=== PATIENT | male | born 1995 | race Caucasian/White ===

== ENCOUNTER 2022-03-15 23:10 | Emergency (ER) | payer OTHER ==
[~2022-03-15] VITALS: Ht 165.1 cm; Wt 75.0 kg
[2022-03-15 23:16] VITALS: BP 131/80
[2022-03-15 23:59] LABS: HEMATOCRIT 41.9 % (39.0-50.0); HEMOGLOBIN 14.6 g/dl (14.0-18.0); IMMATURE GRANULOCYTES 0.1 % (0.0-5.0); MEAN CELL VOLUME 88.6 fL CALC (80.0-100.0); MEAN CORPUSCULAR HGB 30.9 pG CALC (26.0-32.0); MEAN CORPUSCULAR HGB CONC 34.8 g/dL CAL (32.0-36.0); NEUT# 4.18 thou/uL (1.82-7.42); RED BLOOD COUNT 4.73 mill/uL (4.70-6.10); RED CELL DISTRI WIDTH 12.3 % (11.5-15.5)
[2022-03-16 00:32] LABS: ALBUMIN 4.5 g/dL (3.2-5.0); ALKALINE PHOSPHATASE 55 u/l (38-126); ANION GAP 12 (6-22 (CALC)); BILIRUBIN, TOTAL 0.4 mg/dL (0.0-1.4); BUN 18 mg/dL (9-20); BUN/CREATININE RATIO 19 (12-20 (CALC)); CARBON DIOXIDE 24 mmol/l (22-30); CHLORIDE 106 mmol/l (95-108); GFR > 60 ML/MIN (>=60 (CALC)); GFR FOR AFR.AMER. > 60 ML/MIN (>=60 (CALC)); POTASSIUM 3.5 mmol/l (3.5-5.1); SGOT/AST 36 u/l (17-59); SODIUM 139 mmol/l (137-146)
[2022-03-16] MEDS ORDERED: ISENTRESS100 MG PO (01:04)
[2022-03-16] MEDS ORDERED: COMBIVIR 1501 COMBO PO (01:04)
[2022-03-16 01:12] VITALS: BP 131/80
[2022-03-18] MEDS ORDERED: COMBIVIR 1501 COMBO PO (11:10)
[2022-03-18] MEDS ORDERED: ISENTRESS100 MG PO (11:10)
== END 2022-03-16 01:16 | disposition home or self-care (01) | DRG 605 ==
LOC: ED 23:10
PROVIDERS: Emergency Medicine
DX: S60.811A Abrasion of right wrist, initial encounter (principal); W50.4XXA Accidental scratch by another person, initial encounter; Y93.F9 Activity, other caregiving; Y99.0 Civilian activity done for income or pay; Z77.21 Contact with and (suspected) exposure to potentially hazardous body fluids